=== PATIENT | male | born 1960 | race Caucasian/White ===

== ENCOUNTER 2017-03-19 14:00 | Emergency (ER) | payer SELFPAY ==
[~2017-03-19] VITALS: Ht 152.4 cm; Wt 61.0 kg
[2017-03-19 14:15] VITALS: Ht 152.4 cm; Wt 61.0 kg
== END 2017-03-19 15:41 | disposition left against medical advice (07) ==
LOC: E/R 14:00
DX: Z53.21 Procedure and treatment not carried out due to patient leaving prior to being seen by health care provider (principal)

== ENCOUNTER 2017-05-27 13:35 | Emergency (ER) | payer MEDICAID ==
[~2017-05-27] VITALS: Wt 62.0 kg
[2017-05-27] MEDS ORDERED: SOD CHLORIDE 0.9% 500 ML IV STA (15:02)
[2017-05-27] MEDS ORDERED: HYDROmorphONE 1 MG/ML SYG IV STA (15:02)
[2017-05-27] MEDS ORDERED: ONDANSETRON 4 MG INJ IV STA (15:02)
[2017-05-27 15:21] LABS: ABNORMAL IP MESSAGE 1; BASOPHILS % 0.8 % (0.0-2.0); EOSINOPHILS % 0.6 % (0.0-7.0); HEMATOCRIT 40.6 % (42.0-52.0); LYMPHOCYTES # 1.2 10^3/ul (0.8-2.9); LYMPHOCYTES % 22.3 % (15.0-51.0); MEAN CORPUSCULAR HEMOGLOBIN 34.2 pg (29.0-33.0); MEAN CORPUSCULAR HGB CONC 34.5 g/dl (32.0-37.0); MEAN CORPUSCULAR VOLUME 99.3 fl (82.0-101.0); MEAN PLATELET VOLUME 11.2 fl (7.4-10.4); MONOCYTE # 0.6 10^3/ul (0.3-0.9); MONOCYTES % 12.1 % (0.0-11.0); NEUTROPHIL # 3.4 10^3/ul (1.6-7.5); NEUTROPHILS % 63.8 % (39.0-77.0); PLATELET COUNT 91 10^3/UL (140-415); POSITIVE DIFF @See below; RED BLOOD COUNT 4.09 10^6/ul (4.70-6.10); RED CELL DISTRIBUTION WIDTH 12.4 % (11.5-14.5); WHITE BLOOD COUNT 5.3 10^3/ul (4.8-10.8)
[2017-05-27] MEDS ORDERED: LEVO50TA74 PO (15:24)
[2017-05-27] MEDS ORDERED: DIAZEPAM 5 MG TAB PO ONE (15:30)
[2017-05-27 15:35] LABS: ALBUMIN/GLOBULIN RATIO 1.11; BILIRUBIN,INDIRECT 0.9 mg/dl (0-1.1); BILIRUBIN,TOTAL 0.9 mg/dl (0.2-1.3); CALCIUM 9.5 mg/dl (8.4-10.2); CREATININE 0.56 mg/dl (0.61-1.24); POTASSIUM 3.9 mmol/L (3.5-5.1); TOTAL PROTEIN 7.6 g/dl (6.1-8.1)
--- NOTE | 2017-05-27 16:39 | RADRPT ---
PROCEDURE: CT abdomen and pelvis without contrast. CLINICAL INDICATION: Abdominal pain. Low back pain for 3 weeks. Occasional diarrhea TECHNIQUE: CT scan of the abdomen and pelvis without contrast was performed. Sagittal and coronal reformatted images were obtained from the axial source images. One or more of the following dose re duction techniques were used: Automated exposure control, adjustment of the mA and/or kV according t o patient size, use of iterative reconstruction technique. CTDI = 4.83 mGy; DLP = 285.81 mGy-cm COMPARISON: None. FINDINGS: Visualized lower thorax: Amorphous area of increased parenchymal density in the subpleural left low er lobe probably an area of scarring adjacent to an old healed left posterior rib fracture. There is no evidence of pulmonary infiltrate. There is no evidence for pleural effusion. Liver, gallbladder, pancreas and spleen: Diffuse low attenuation of the liver is compatible with he patic steatosis with preserved liver size and contour> . There is no evidence for a liver mass or d uctal dilatation. No calcified gallstones are demonstrated but there is concern for possible gallbl adder wall thickening and pericholecystic fluid. No common bile duct abnormality is demonstrated. The pancreas is unremarkable. The spleen is normal in size. Adrenal glands and genitourinary system: The adrenal glands are normal bilaterally. The kidneys are normal and size, contour and attenuation with no evidence for masses, calculi or hydronephrosis. T he ureters are unremarkable. No urinary bladder abnormality is demonstrated. The prostate gland is normal in size. The scrotum shows no evidence of abnormality. Gastrointestinal system: The stomach is normal in caliber with no abnormality of significance. A g as/fluid level within the duodenum is equivocal for focal ileus, no bowel obstruction pattern is pre sent. There is no evidence of appendicitis. The colon shows no evidence for wall thickening or acut e abnormality. There is no evidence for colitis or diverticulitis. Peritoneum, retroperitoneum, lymph nodes and vessels: The abdominal aorta is normal in caliber. The re is mild to moderate aortic and iliac system atherosclerotic calcification. The inferior vena cav a is unremarkable. There is no evidence for adenopathy or mass. There is no ascites. No pneumoperi toneum is present. Osseous structures and musculoskeletal findings: Chronic-appearing a loss of axial height at the cazares perior L1 level possibly the sequela of remote injury. Anterior spondylosis at L1-2 is present. Ther e is no evidence of acute fracture, lytic or blastic lesion. The bony pelvis is unremarkable. No mu scular abnormality or soft tissue pathology is present. RPTAT:HJJR IMPRESSION: 1. Equivocal duodenal ileus without evidence of bowel obstruction, colitis or diverticulitis. 2. Concern for mild gallbladder wall thickening or pericholecystic fluid without calcified gallston es. Correlation with right upper quadrant tenderness on physical exam is recommended. 3. Probable focal area of subpleural scarring in the posterior left lower lobe adjacent to an old he aled left rib fracture. Consider outpatient follow-up CT chest without contrast and 6-12 months. 4. Hepatic steatosis. 5. Mild loss of the superior L1 endplate axial height suggest the sequela of remote injury. 6. Atherosclerotic calcification of the aorta and iliac systems. Physician Meka Date Time Electronically viewed and signed by Physician Meka on 05/27/2017 16:38 JR/
--- NOTE | 2017-05-27 18:26 | RADRPT ---
PROCEDURE: US Abdomen. CLINICAL INDICATION: abdominal pain TECHNIQUE: Multiple real-time images were acquired of the patient's right upper quadrant abdomen a nd retroperitoneum utilizing a high resolution transducer. COMPARISON: None FINDINGS: The liver demonstrates increased echogenicity. The liver is normal in size and no focal solid lesio ns are seen. The liver measures 14.7 cm in length. The portal vein is patent with normal direction o f flow. No intrahepatic biliary dilatation is seen. No gallstones are identified within the gallbladder. There is no pericholecystic fluid or gallbladd er wall thickening. The common bile duct measures 6 mm in maximal dimension. The visualized portions of the pancreas are unremarkable. The tail of the pancreas is not seen. No free fluid is identified. The right kidney is normal in size, and demonstrate normal echogenicity and cortical thickness. The right kidney measures 11 cm in long dimension. There is no evidence of hydronephrosis. There are n o kidney stones. IMPRESSION: Hyperechoic liver compatible with nonspecific parenchymal disease. No cholelithiasis or sonographic evidence for cholecystitis. RPTAT: [facility] Physician Socorro Date Time Electronically viewed and signed by Physician Socorro on 05/27/2017 18:26 KS/
[2017-05-27] MEDS ORDERED: DIAZ-90 PO (18:48)
[2017-05-27] MEDS ORDERED: IBUP800T25 PO (18:48)
--- NOTE | 2017-05-27 21:23 | ERD ---
ER Documentation Chief Complaint Chief Complaint low back pain with no trauma. no releif with muscle relaxants. HPI This is a 56-year-old gentleman with a history of alcohol abuse issues who presents to the emergency room complaining of lumbar back pain. He describes right-sided lumbar back pain that is colicky and spasmodic over the last several days. He went to an urgent care and was given a muscle relaxant but did not fill the medication. He denies any bowel or bladder incontinence and/ or retention. No dysuria urgency or frequency. No motor weakness or pain in the scrotum or testicles. Pain is 8 out of 10. ROS All systems reviewed and are negative except as per history of present illness. Medications Home Meds Active Scripts Diazepam* (Valium*) 5 Mg Tablet, 5 MG PO Q8 Y for MUSCLE SPASMS, #12 TAB Prov:THOMAS MCKEON MD 05/27/17 Ibuprofen* (Motrin*) 800 Mg Tab, 800 MG PO Q6H Y for PAIN AND OR ELEVATED TEMP, #30 TAB Prov:THOMAS MCKEON MD 05/27/17 Reported Medications Levothyroxine Sodium* (Levothyroxine Sodium*) 50 Mcg Tablet, 50 MCG PO BEFORE BREAKFAST, #30 TAB 05/27/17 Allergies Allergies: Coded Allergies: No Known Allergy (Unverified , 05/27/17) PMhx/Soc Hx Alcohol Use: Yes Hx Substance Use: No Hx Tobacco Use: Yes Smoking Status: Current every day smoker FmHx Family History: No diabetes Physical Exam Vitals Vital Signs Date Time Temp Pulse Resp B/P Pulse Ox O2 Delivery O2 Flow Rate FiO2 05/27/17 14:50 98.0 88 20 139/88 98 Physical Exam General: Thin and cachectic, uncomfortable Head: Normocephalic, atraumatic. Eyes: Pupils equally reactive, EOM intact ENT: Moist mucous membranes Neck: Supple, no lymphadenopathy Respiratory: Lungs clear bilaterally, no distress Cardiovascular: RRR, no murmurs, rubs, or gallops Abdominal: Soft, non-tender, non-distended, no peritoneal signs, no tenderness to McBurney's point : No inguinal hernia MSK: No edema, no unilateral swelling, 5/5 strength Neurologic: Alert and oriented, moving all extremities, normal speech, no focal weakness, no cerebellar signs Skin: No rash Psych: Normal mood Result Diagram: 05/27/17 1500 05/27/17 1500 Results 24 hrs Laboratory Tests Test 05/27/17 15:00 White Blood Count 5.310^3/ul Red Blood Count 4.0910^6/ul Hemoglobin 14.0g/dl Hematocrit 40.6% Mean Corpuscular Volume 99.3fl Mean Corpuscular Hemoglobin 34.2pg Mean Corpuscular Hemoglobin Concent 34.5g/dl Red Cell Distribution Width 12.4% Platelet Count 9110^3/UL Mean Platelet Volume 11.2fl Neutrophils % 63.8% Lymphocytes % 22.3% Monocytes % 12.1% Eosinophils % 0.6% Basophils % 0.8% Nucleated Red Blood Cells % 0.0/100WBC Neutrophils # 3.410^3/ul Lymphocytes # 1.210^3/ul Monocytes # 0.610^3/ul Eosinophils # 0.010^3/ul Basophils # 0.010^3/ul Nucleated Red Blood Cells # 0.010^3/ul Sodium Level 141mmol/L Potassium Level 3.9mmol/L Chloride Level 101mmol/L Carbon Dioxide Level 28mmol/L Anion Gap 16 Blood Urea Nitrogen 3mg/dl Creatinine 0.56mg/dl Glucose Level 105mg/dl Calcium Level 9.5mg/dl Total Bilirubin 0.9mg/dl Direct Bilirubin 0.00mg/dl Indirect Bilirubin 0.9mg/dl Aspartate Amino Transf (AST/SGOT) 344IU/L Alanine Aminotransferase (ALT/SGPT) 227IU/L Alkaline Phosphatase 214IU/L Total Protein 7.6g/dl Albumin 4.0g/dl Globulin 3.60g/dl Albumin/Globulin Ratio 1.11 Lipase 267U/L Current Medications Medications (Trade) Dose Ordered Sig/Carol Route PRN Reason Start Time Stop Time Status Last Admin Dose Admin Sodium Chloride (NS) 500 ml @ 500 mls/hr Q1H STAT IV 05/27/17 15:02 05/27/17 16:01 DC 05/27/17 15:41 Hydromorphone HCl (Dilaudid) 1 mg ONCE STAT IV 05/27/17 15:02 05/27/17 15:03 DC 05/27/17 15:41 Ondansetron HCl (Zofran Inj) 4 mg ONCE STAT IV 05/27/17 15:02 05/27/17 15:03 DC 05/27/17 15:41 Diazepam (Valium) 5 mg ONCE ONCE PO 05/27/17 15:30 05/27/17 15:31 DC 05/27/17 15:41 Procedures/MDM EKG, MONITORS, & DIAGNOSTIC IMAGING: CT a/p IMPRESSION: 1. Equivocal duodenal ileus without evidence of bowel obstruction, colitis or diverticulitis. 2. Concern for mild gallbladder wall thickening or pericholecystic fluid without calcified gallstones. Correlation with right upper quadrant tenderness on physical exam is recommended. 3. Probable focal area of subpleural scarring in the posterior left lower lobe adjacent to an old healed left rib fracture. Consider outpatient follow-up CT chest without contrast and 6-12 months. 4. Hepatic steatosis. 5. Mild loss of the superior L1 endplate axial height suggest the sequela of remote injury. 6. Atherosclerotic calcification of the aorta and iliac systems. US GB IMPRESSION: Hyperechoic liver compatible with nonspecific parenchymal disease. No cholelithiasis or sonographic evidence for cholecystitis. RPTAT: [facility] LAB INTERPRETATION: Thrombocytopenia, transaminitis, normal lipase MEDICAL DECISION MAKING: Patient presents with back pain. The patient's low back pain is unlikely related to serious etiology. The patient exhibits no clinical signs or symptoms and has no history or risk factors to suggest cauda equina, cord compression, epidural abscess, epidural hematoma, acute aortic aneurysm or dissection. Consider possible ureteral colic given the location of the patient's pain. The patient otherwise has a benign abdominal exam but I believe CT imaging of the abdomen and pelvis would be appropriate. ER COURSE: The patient was given pain control medication with a dramatic improvement of his symptoms. He is now ambulatory without much difficulty. No evidence of compressive lumbar radiculopathy. The patient is nonspecific transaminitis and thrombocytopenia. The patient admits to drinking issues and drinking problems. This could be related to the patient's symptoms as well but the patient has no evidence of pancreatitis. His CT prompted an ultrasound that shows no evidence of acute cholecystitis. His clinical exam is not consistent with acute cholecystitis. I believe this is musculoskeletal in etiology and the patient can be safely discharged with nonsteroidal anti-inflammatories and muscle relaxant medication in the form of Valium. Prior to discharge the patient was comfortable and ambulatory. I kept the patient and/or family informed of laboratory and diagnostic imaging results throughout the emergency room course. DISPOSITION PLAN: We discussed follow up with the patient's primary care doctor within 24 to 48 hours as needed. We also discussed return to the emergency room for worsening symptoms or worsening condition. Outpatient referral: [None required] Discharge Medications: Motrin, Valium Departure Diagnosis: Primary Impression: Back pain Back pain location: low back pain Chronicity: acute Back pain laterality: bilateral Sciatica presence: without sciatica Qualified Code: M54.5 - Acute bilateral low back pain without sciatica Additional Impressions: Injury of back Encounter type: initial encounter Qualified Code: S39.92XA - Injury of back , initial encounter Thrombocytopenia Transaminitis Alcohol abuse Condition: Stable Patient Instructions: Back Pain (Acute Or Chronic) Additional Instructions: Call your primary care doctor TOMORROW for an appointment during the next 1 WEEK.Tell the pathology secretary/transcriptionist that you were referred from this facility.See the doctor sooner or return here if your condition worsens before your appointment time. THOMAS MCKEON MD May 27, 2017 21:23
== END 2017-05-27 19:21 | disposition home or self-care (01) ==
LOC: E/R 13:35
DX: S39.92XA Unspecified injury of lower back, initial encounter (principal); D69.6 Thrombocytopenia, unspecified; R74.0 Nonspecific elevation of levels of transaminase and lactic acid dehydrogenase [LDH]; F10.10 Alcohol abuse, uncomplicated; F17.210 Nicotine dependence, cigarettes, uncomplicated; X58.XXXA Exposure to other specified factors, initial encounter; Y92.9 Unspecified place or not applicable
CPT/HCPCS: 36415; 74176; 76705; 80053; 83690; 85025; 96374; 96375; J1170; J2405; J7040; Z7502; Z7610